=== PATIENT | male | born 1985 | race Caucasian/White ===

== ENCOUNTER 2016-09-11 12:03 | Emergency (ER) | payer OTHER ==
[~2016-09-11] VITALS: Ht 172.7 cm; Wt 79.8 kg
[2016-09-11 17:21] VITALS: BP 126/69
== END 2016-09-11 17:21 | disposition home or self-care (01) ==
LOC: ED 12:03
DX: S41.111A Laceration without foreign body of right upper arm, initial encounter (principal); X58.XXXA Exposure to other specified factors, initial encounter; Y93.89 Activity, other specified; Y99.8 Other external cause status; Y92.89 Other specified places as the place of occurrence of the external cause
CPT/HCPCS: 90715; J2001

== ENCOUNTER 2016-09-13 11:54 | Emergency (ER) | payer OTHER ==
[2016-09-13 12:13] VITALS: BP 124/76
== END 2016-09-13 12:53 | disposition home or self-care (01) ==
LOC: ED 11:54
DX: S41.111D Laceration without foreign body of right upper arm, subsequent encounter (principal); X58.XXXD Exposure to other specified factors, subsequent encounter; Y99.8 Other external cause status; Y92.89 Other specified places as the place of occurrence of the external cause

== ENCOUNTER 2016-09-25 08:48 | Emergency (ER) | payer OTHER ==
[~2016-09-25] VITALS: Ht 172.7 cm; Wt 78.0 kg
[2016-09-25 09:28] VITALS: BP 130/60
== END 2016-09-25 09:28 | disposition home or self-care (01) ==
LOC: ED 08:48
DX: S51.011D Laceration without foreign body of right elbow, subsequent encounter (principal); X58.XXXD Exposure to other specified factors, subsequent encounter; Y99.8 Other external cause status; Y92.89 Other specified places as the place of occurrence of the external cause

== ENCOUNTER 2018-01-24 14:30 | Emergency (ER) | payer OTHER ==
[~2018-01-24] VITALS: Ht 170.2 cm; Wt 80.3 kg
[2018-01-24 14:38] VITALS: BP 138/99; Ht 170.2 cm; Wt 80.3 kg
== END 2018-01-24 17:03 | disposition home or self-care (01) ==
LOC: ED 14:30
DX: H01.005 Unspecified blepharitis left lower eyelid (principal); N31.2 Flaccid neuropathic bladder, not elsewhere classified